=== PATIENT | female | born 1960 | race Caucasian/White ===

== ENCOUNTER → 2016-12-05 | Outpatient (CLI) | payer BC ==
[~2016-12-05] MED LIST: ATIVAN 0.50.5 MG/TAB PO; BUSPAR10 MG PO; DESYREL DIVIDO150 M1 PO; FERROUS SULFATE27 MG PO; HYZAAR 12.5 MG-1 TAB PO; MULTIVITAMIN FO1 CAP PO; NORCO 325 MG-51 TAB PO; PREMPHASE1 TAB PO; SYNTHROID 0.10.15 MG PO; VALTREX1 GM PO; VITAMIN B 12 PO; VITAMIN D 3 PO; ZOLOFT 100MG100 MG PO
== END ==
LOC: BHSO 08:11
DX: F10.20 Alcohol dependence, uncomplicated (principal)

== ENCOUNTER → 2016-12-30 | Outpatient (CLI) | payer BC | LOC: BHSO 08:04 | DX: F33.42 Major depressive disorder, recurrent, in full remission (principal) ==

== ENCOUNTER → 2017-02-28 | Outpatient (CLI) | payer BC | LOC: BHSO 08:04 | DX: F33.42 Major depressive disorder, recurrent, in full remission (principal) ==

== ENCOUNTER → 2017-05-31 | Outpatient (CLI) | payer BC | LOC: BHSO 09:09 | DX: F33.42 Major depressive disorder, recurrent, in full remission (principal) ==

== ENCOUNTER → 2018-02-19 | Outpatient (CLI) | payer BC | LOC: MC.RAD 07:20 | DX: Z12.31 Encounter for screening mammogram for malignant neoplasm of breast (principal) ==

== ENCOUNTER → 2018-02-23 | Outpatient (CLI) | payer BC | LOC: BHSO 08:49 | DX: F33.41 Major depressive disorder, recurrent, in partial remission (principal) | CPT/HCPCS: G0463 ==

== ENCOUNTER 2018-05-17 16:05 | Emergency (ER) | payer BC ==
[2018-05-17 16:40] VITALS: TEMP 98.6
[2018-05-17] MEDS ORDERED: EFFEXOR XR75 MG/CAP (16:45)
[2018-05-17 17:02] LABS: COLLECTION METHOD CLEAN CATCH
[2018-05-17 17:04] LABS: BASO % 0.1 % (0.0-2.0); GRAN # 6.5 (1.4-6.5); HEMATOCRIT 34.4 % (37.0-47.0); HEMOGLOBIN 11.4 g/dl (12.5-16.0); LYMPH # 0.4 (1.2-3.4); LYMPH % 4.8 % (20.0-51.0); MEAN CELL VOLUME 85 fl (80.0-100.0); MEAN CORPUSCULAR HEMOGLOBIN 28 pg (27.0-31.0); MEAN CORPUSCULAR HGB CONC 33 g/dl (33.0-37.0); MONO # 0.4 (0.1-0.6); MONO % 5.8 % (1.7-9.3); PLATELET COUNT 185 K/mm3 (130-400); RED BLOOD COUNT 4.07 M/mm3 (4.10-5.30); REDCELL DISTRIBUTION WIDTH-CV 15.7 % (11.5-14.5)
[2018-05-17 17:10] LABS: ALANINE AMINOTRANSFERASE 38 U/L (9-52); ALBUMIN 3.9 gm/dL (3.5-5.0); ALKALINE PHOSPHATASE 81 U/L (50-136); ANION GAP 14 mmol/L (7-16); AST,SGOT 47 U/L (15-37); BILIRUBIN,TOTAL 1.2 mg/dL (0.0-1.0); BLOOD UREA NITROGEN 10 mg/dL (7-17); CALCIUM 8.2 mg/dL (8.4-10.2); CARBON DIOXIDE 23 mmol/L (22-30); CREATININE, serum 0.61 mg/dL (0.52-1.25); GLUCOSE 221 mg/dL (74-106); LIPASE 95 U/L (23-300); MAGNESIUM 1.3 mg/dL (1.6-2.3); POTASSIUM 4.6 mmol/L (3.4-5.0); SODIUM 124 mmol/L (137-145); TOTAL PROTEIN 7.6 gm/dL (6.4-8.2)
[2018-05-17 17:13] LABS: MUCOUS Present /lpf; PH 5 (5-8); URINE APPEARANCE Hazy; URINE BACTERIA Rare /hpf; URINE BILIRUBIN Negative (NEGATIVE); URINE BLOOD Negative (NEGATIVE); URINE COLOR Yellow; URINE GLUCOSE 3+ (NEGATIVE); URINE KETONE 2+ (NEGATIVE); URINE LEUKOCYTE ESTERASE Negative (NEGATIVE); URINE NITRATE Negative (NEGATIVE); URINE PROTEIN(semi-quant) Negative (NEGATIVE); URINE RBC 0-2 /hpf; URINE UROBILINOGEN Negative (NEGATIVE)
[2018-05-17 17:15] LABS: ALCOHOL(ethanol),MEDICAL < 10 mg/dL
[2018-05-17 17:16] LABS: CHLORIDE 87 mmol/L (98-107)
[2018-05-17] MEDS ORDERED: VALIUM 5MG T5 MG/TAB PO (18:09)
[2018-05-17] MEDS ORDERED: ZOFRAN 4MG T4 MG/TAB PO (18:09)
[2018-05-17 19:50] VITALS: BP 143/79; PULSE 80
== END 2018-05-17 20:01 | disposition home or self-care (01) ==
LOC: COL.ER 16:05
PROVIDERS: Emergency Medicine
DX: F10.239 Alcohol dependence with withdrawal, unspecified (principal); R11.10 Vomiting, unspecified; E87.1 Hypo-osmolality and hyponatremia; E83.42 Hypomagnesemia
CPT/HCPCS: J0780; J2060; J2405; J3411; J3475; J7030

== ENCOUNTER → 2018-05-25 | Outpatient (CLI) | payer BC ==
[~2018-05-25] MED LIST changes: +EFFEXOR XR75 MG/CAP; +VALIUM 5MG T5 MG/TAB PO; +ZOFRAN 4MG T4 MG/TAB PO
== END ==
LOC: BHSO 08:06
DX: F33.42 Major depressive disorder, recurrent, in full remission (principal)
CPT/HCPCS: G0463

== ENCOUNTER 2018-07-28 12:43 | Emergency (ER) | payer BC ==
[2018-07-28 12:46] VITALS: TEMP 98.4
[2018-07-28 13:15] LABS: BASO # 0.1 (0.0-0.2); BASO % 0.9 % (0.0-2.0); EOS # 0.2 (0.0-0.7); EOS % 3.3 % (0-4.0); GRAN # 2.8 (1.4-6.5); GRAN % 48.2 % (42.2-75.2); HEMOGLOBIN 11.9 g/dl (12.5-16.0); LYMPH # 2.3 (1.2-3.4); LYMPH % 40.5 % (20.0-51.0); MEAN CELL VOLUME 85 fl (80.0-100.0); MEAN CORPUSCULAR HEMOGLOBIN 28 pg (27.0-31.0); MEAN CORPUSCULAR HGB CONC 33 g/dl (33.0-37.0); MEAN PLATELET VOLUME 8.9 fl (7.4-10.4); MONO # 0.4 (0.1-0.6); MONO % 6.4 % (1.7-9.3); PLATELET COUNT 295 K/mm3 (130-400); RED BLOOD COUNT 4.25 M/mm3 (4.10-5.30); REDCELL DISTRIBUTION WIDTH-CV 15.9 % (11.5-14.5)
[2018-07-28 13:16] LABS: HEMATOCRIT 36.2 % (37.0-47.0)
[2018-07-28] MEDS ORDERED: CAMPRAL333 M1 PO (13:19)
[2018-07-28 13:20] LABS: ALANINE AMINOTRANSFERASE 18 U/L (9-52); ALBUMIN 3.9 gm/dL (3.5-5.0); ALKALINE PHOSPHATASE 86 U/L (50-136); ANION GAP 15 mmol/L (7-16); AST,SGOT 34 U/L (15-37); BILIRUBIN,TOTAL 0.2 mg/dL (0.0-1.0); BLOOD UREA NITROGEN 10 mg/dL (7-17); CALCIUM 8.1 mg/dL (8.4-10.2); CARBON DIOXIDE 25 mmol/L (22-30); CHLORIDE 103 mmol/L (98-107); CREATININE, serum 0.62 mg/dL (0.52-1.25); GLUCOSE 97 mg/dL (74-106); MAGNESIUM 1.9 mg/dL (1.6-2.3); POTASSIUM 4.3 mmol/L (3.4-5.0); SODIUM 143 mmol/L (137-145); TOTAL PROTEIN 7.2 gm/dL (6.4-8.2)
[2018-07-28 13:27] LABS: ACETAMINOPHEN < 10 ug/mL (10-30); SALICYLATE < 1.0 mg/dL
[2018-07-28 13:28] LABS: ALCOHOL(ethanol),MEDICAL 400 mg/dL
[2018-07-28 13:30] LABS: COLLECTION METHOD CLEAN CATCH
[2018-07-28 13:41] LABS: MUCOUS Present /lpf; PH 5 (5-8); SQUAMOUS EPITHELIAL 0-2 /hpf; URINE APPEARANCE Clear; URINE BACTERIA Rare /hpf; URINE BILIRUBIN Negative (NEGATIVE); URINE BLOOD Negative (NEGATIVE); URINE COLOR Straw; URINE GLUCOSE Negative (NEGATIVE); URINE KETONE Negative (NEGATIVE); URINE LEUKOCYTE ESTERASE Negative (NEGATIVE); URINE NITRATE Negative (NEGATIVE); URINE PROTEIN(semi-quant) Negative (NEGATIVE); URINE RBC 0-2 /hpf; URINE UROBILINOGEN Negative (NEGATIVE)
[2018-07-28 13:50] LABS: TRICYCLIC ANTIDEPRESS URINE NEGATIVE
[2018-07-28 21:34] VITALS: BP 136/87
[2018-07-29 05:39] VITALS: PULSE 97
== END 2018-07-29 05:40 | disposition home or self-care (01) ==
LOC: COL.ER 12:43
PROVIDERS: Emergency Medicine
DX: R45.851 Suicidal ideations (principal); F10.129 Alcohol abuse with intoxication, unspecified; F32.9 Major depressive disorder, single episode, unspecified; Y90.8 Blood alcohol level of 240 mg/100 ml or more

== ENCOUNTER → 2018-08-02 | Outpatient (CLI) | payer BC ==
[~2018-08-02] MED LIST changes: +CAMPRAL333 M1 PO
== END ==
LOC: BHSO 14:26
DX: F10.20 Alcohol dependence, uncomplicated (principal)
CPT/HCPCS: G0463

== ENCOUNTER → 2018-09-20 | Outpatient (CLI) | payer BC | LOC: BHSO 08:21 | DX: F10.20 Alcohol dependence, uncomplicated (principal) | CPT/HCPCS: G0463 ==

== ENCOUNTER → 2018-12-19 | Outpatient (CLI) | payer BC | LOC: BHSO 08:16 | DX: F33.42 Major depressive disorder, recurrent, in full remission (principal) | CPT/HCPCS: G0463 ==

== ENCOUNTER 2019-06-08 19:30 | Emergency (ER) | payer BC ==
[~2019-06-08] VITALS: Ht 165.1 cm; Wt 47.7 kg
[2019-06-08 19:32] VITALS: TEMP 99.5
[2019-06-08 19:58] VITALS: BP 114/73
[2019-06-08 21:57] VITALS: PULSE 92
== END 2019-06-08 21:57 | disposition home or self-care (01) ==
LOC: COL.ER 19:30
DX: S01.81XA Laceration without foreign body of other part of head, initial encounter (principal); F10.10 Alcohol abuse, uncomplicated; W19.XXXA Unspecified fall, initial encounter; W22.8XXA Striking against or struck by other objects, initial encounter

== ENCOUNTER 2021-08-04 08:31 | Inpatient (IN) | payer BC ==
[2021-08-04] VITALS (358 sets, daily range): BP systolic 93–119; BP diastolic 58–91; PULSE 118–132; TEMP 98–98.3; O2SAT 88–100
[~2021-08-04] VITALS: Ht 165.1 cm; Wt 75.0 kg
[2021-08-04 09:11] LABS: ALANINE AMINOTRANSFERASE 283 U/L (4-34); ALBUMIN 4.4 gm/dL (3.5-5.0); ALKALINE PHOSPHATASE 84 U/L (50-136); ANION GAP 15 mmol/L (7-16); BILIRUBIN,TOTAL 3.3 mg/dL (0.0-1.0); BLOOD UREA NITROGEN 29 mg/dL (7-17); C-REACTIVE PROTEIN 4.1 mg/dL (0.0-0.9); CALCIUM 9.1 mg/dL (8.4-10.2); CARBON DIOXIDE 35 mmol/L (22-30); CREATININE, serum 1.11 (0.52-1.25); GLUCOSE 119 mg/dL (74-106); LIPASE 160 U/L (23-300); SODIUM 120 mmol/L (137-145); TOTAL PROTEIN 7.6 gm/dL (6.4-8.2)
[2021-08-04 09:26] LABS: ALCOHOL(ethanol),MEDICAL < 10 mg/dL
[2021-08-04 09:28] LABS: POTASSIUM 2.3 mmol/L (3.4-5.0)
[2021-08-04 09:29] LABS: AST,SGOT 1026 U/L (15-37); CHLORIDE 71 mmol/L (98-107)
[2021-08-04 09:44] LABS: MUCOUS Present /lpf; PH 5 (5-8); SQUAMOUS EPITHELIAL 0-2 /hpf; URINE APPEARANCE Hazy; URINE BACTERIA None Seen /hpf; URINE BILIRUBIN Negative (NEGATIVE); URINE BLOOD 3+ (NEGATIVE); URINE COLOR Amber; URINE GLUCOSE Negative (NEGATIVE); URINE KETONE Trace (NEGATIVE); URINE LEUKOCYTE ESTERASE Negative (NEGATIVE); URINE NITRATE Negative (NEGATIVE); URINE PROTEIN(semi-quant) 2+ (NEGATIVE); URINE RBC 0-2 /hpf
[2021-08-04 09:47] LABS: COLLECTION METHOD CATHETER
[2021-08-04 09:52] LABS: HEMATOCRIT 42.4 % (37.0-47.0); HEMOGLOBIN 15.3 g/dl (12.5-16.0); MEAN CELL VOLUME 84 fl (80.0-100.0); MEAN CORPUSCULAR HEMOGLOBIN 30 pg (27.0-31.0); MEAN CORPUSCULAR HGB CONC 36 g/dl (33.0-37.0); MEAN PLATELET VOLUME 10.7 fl (7.4-10.4); PLATELET COUNT 268 K/mm3 (130-400); RED BLOOD COUNT 5.05 M/mm3 (4.10-5.30); REDCELL DISTRIBUTION WIDTH-CV 13.3 % (11.5-14.5)
[2021-08-04 10:22] LABS: BAND 7 % (0-10); LYMPHOCYTE 4 % (20.0-51.0); NEUTROPHILS 80 % (42.0-75.2); PLATELET ESTIMATE NORMAL (NORMAL)
[2021-08-04 10:24] LABS: CREATINE KINASE 34209 U/L (30-135)
--- NOTE | 2021-08-04 11:45 | NUR ---
PT ADMITTED FROM ER WITH FALL AND WEAKNESS. PT IS LETHARGIC BUT ORIENTED. PT HAS SCATTERED BRUISING ALL OVER FROM FALL. PT IS ST ON MONITOR. PT'S BP IS SOFT IN THE 90'S. PT HAS NS RUNNING AT 75ML/HR. PTS HOME MEDS SENT DOWN TO PHARMACY. PT HAS A NECKLACE, WATCH, PHONE, AND CLOTHES IN ROOM. DANIEL IS HER PRIMARY CONTACT. ON THE UNIT AND NOTIFIED OF ARRIVAL. LAB CALLED FOR LACTIC AND BMP ORDERED. WILL CONITNUE TO MONITOR.
[2021-08-04] MEDS ORDERED: BRINTELLIX10 (12:05)
[2021-08-04] MEDS ORDERED: ABILIFY5 MG PO (12:06)
[2021-08-04] MEDS ORDERED: HCTZ 25MG TAB25 MG PO (12:07)
[2021-08-04] MEDS ORDERED: ATARAX50 MG PO (12:08)
[2021-08-04] MEDS ORDERED: NORCO 325 MG-7.1 TAB PO (12:10)
[2021-08-04 13:11] LABS: CALCIUM 8.2 mg/dL (8.4-10.2); CREATININE, serum 0.86 (0.52-1.25)
[2021-08-04 13:23] LABS: POTASSIUM 2.6 mmol/L (3.4-5.0)
--- NOTE | 2021-08-04 16:00 | NUR ---
Pt has not been able to void. Pt bladder scanned with a result of 288. Will continue to montior.
[2021-08-04 18:32] LABS: CALCIUM 7.9 mg/dL (8.4-10.2); CREATININE, serum 0.86 (0.52-1.25); POTASSIUM 3.1 mmol/L (3.4-5.0)
[2021-08-05] VITALS (600 sets, daily range): BP systolic 92–114; BP diastolic 62–78; PULSE 91–108; TEMP 97.9–98.5; O2SAT 76–100
[2021-08-05 05:15] LABS: BASO % 0.3 % (0.0-2.0); EOS # 0.1 (0.0-0.7); EOS % 0.5 % (0-4.0); GRAN # 12.5 (1.4-6.5); GRAN % 79.3 % (42.2-75.2); LYMPH # 1.5 (1.2-3.4); LYMPH % 9.8 % (20.0-51.0); MEAN CELL VOLUME 87 fl (80.0-100.0); MEAN CORPUSCULAR HGB CONC 35 g/dl (33.0-37.0); MONO # 1.4 (0.1-0.6); MONO % 9.1 % (1.7-9.3); PLATELET COUNT 189 K/mm3 (130-400)
[2021-08-05 05:17] LABS: HEMATOCRIT 31.4 % (37.0-47.0); MEAN CORPUSCULAR HEMOGLOBIN 31 pg (27.0-31.0)
[2021-08-05 06:07] LABS: CALCIUM 7.6 mg/dL (8.4-10.2); CREATININE, serum 0.61 (0.52-1.25); POTASSIUM 3.4 mmol/L (3.4-5.0)
[2021-08-05 12:03] LABS: CALCIUM 7.8 mg/dL (8.4-10.2); CREATININE, serum 0.59 (0.52-1.25); MAGNESIUM 1.9 mg/dL (1.6-2.3); POTASSIUM 3.6 mmol/L (3.4-5.0)
--- NOTE | 2021-08-05 16:22 | NUR ---
refuge worker met with patient to discuss discharge planning. Patient states she resides with her spouse and plans to return there upon discharge. Patient's primary care provider is Dr Rosario. Patient states she is concerned about her weakness and possibility of needing durable medical equipment in the home. Worker stated that physical therapy will help guide us on what might be needed and we will help patient secure the item. Worker provided information on advance directives and will follow up with patient tomorrow as she is interested in making these documents. Patient states she does not have problems obtaining her prescriptions.
[2021-08-05 18:01] LABS: CALCIUM 7.7 mg/dL (8.4-10.2); CREATININE, serum 0.53 (0.52-1.25); POTASSIUM 3.6 mmol/L (3.4-5.0)
--- NOTE | 2021-08-05 19:29 | NUR ---
Report given to JUAN Patiño.
--- NOTE | 2021-08-05 23:25 | NUR ---
RECEIVED REPORT FROM SCALLOP DREDGERTARA. AWAITING PATIENT TRANSFER FROM ICU TO ROOM 325.
--- NOTE | 2021-08-05 23:45 | NUR ---
PT TRANSFERRED TO SURGICAL 325. REPORT GIVEN TO ARIN MARTINEZ PER PHONE, RN AT BEDSIDE ON ARRIVAL. BELONGINGS INCLUDING CLOTHES, WATCH, LAPTOP/STONE RUBBER, AND PHONE WITH PT.
[2021-08-05 23:49] LABS: CALCIUM 7.9 mg/dL (8.4-10.2); CREATININE, serum 0.64 (0.52-1.25); POTASSIUM 3.8 mmol/L (3.4-5.0)
--- NOTE | 2021-08-05 23:53 | NUR ---
PATIENT TRANSFERED VIA WHEELCHAIR FROM ICU ACCOMPANIED BY ICU [id number]. TELE IN PLACE.
--- NOTE | 2021-08-06 00:35 | NUR ---
OBSERVED GAIT STIFF LEGGED/AWKWARD WITH AMBULATION TO BATHROOM.
[2021-08-06 01:59] VITALS: BP 105/64; PULSE 96; TEMP 98.1
[2021-08-06 04:42] VITALS: BP 87/57; PULSE 86; TEMP 97.7
[2021-08-06 06:26] VITALS: BP 104/63; PULSE 96; TEMP 98.7
--- NOTE | 2021-08-06 07:35 | NUR ---
CHANGE OF SHIFT REPORT GIVEN TO DAY SHIFT NURSE, RUPA MARTINEZ.
[2021-08-06 07:55] LABS: ALBUMIN 2.7 gm/dL (3.5-5.0); BILIRUBIN,TOTAL 0.6 mg/dL (0.0-1.0); CALCIUM 7.5 mg/dL (8.4-10.2); CREATININE, serum 0.5 (0.52-1.25); MEAN CELL VOLUME 89 fl (80.0-100.0); MEAN CORPUSCULAR HGB CONC 33 g/dl (33.0-37.0); MEAN PLATELET VOLUME 9.9 fl (7.4-10.4); PLATELET COUNT 206 K/mm3 (130-400); POTASSIUM 3.3 mmol/L (3.4-5.0); RED BLOOD COUNT 3.27 M/mm3 (4.10-5.30); REDCELL DISTRIBUTION WIDTH-CV 14.7 % (11.5-14.5); TOTAL PROTEIN 5.1 gm/dL (6.4-8.2)
[2021-08-06 07:56] LABS: HEMATOCRIT 29.2 % (37.0-47.0); HEMOGLOBIN 9.7 g/dl (12.5-16.0); MEAN CORPUSCULAR HEMOGLOBIN 30 pg (27.0-31.0)
--- NOTE | 2021-08-06 08:30 | NUR ---
PATIENT HELPED TO CHAIR. WEAK GAIT. GAIT BELT UTILIZED. PATIENT IS ALERT AND ORIENTED X4 BUT IS DROWSY AND STILL HAS SLIGHT TREMORS. PATIENT HAS IV TO LEFT FOREARM AND LEFT AC WITH FLUIDS RUNNING AT 125ML/HR. PATIENT HAS LIMITED MOVEMENT OF RIGHT ARM. PATIENT ON ROOM AIR. PATIENT DENIES PAIN OR FURTHER NEEDS AT THIS TIME. CALL LIGHT WITHIN REACH. HEAD TO TOE ASSESSMENT COMPLETE.
[2021-08-06 08:35] LABS: BAND 9 % (0-10); EOSINOPHIL 3 % (0-4); LYMPHOCYTE 13 % (20.0-51.0); METAMYELOCYTE 2 % (0-0); NEUTROPHILS 65 % (42.0-75.2); PLATELET ESTIMATE NORMAL (NORMAL)
--- NOTE | 2021-08-06 10:00 | NUR ---
DR. YU IN WITH PATIENT SAID TO CAP FLUIDS. PATIENT GIVEN POTASSIUM REPLACEMENT PER ORDERS. POTASSIUM OF 3.3
[2021-08-06 11:27] VITALS: BP 116/67; PULSE 97; TEMP 97.7
--- NOTE | 2021-08-06 12:09 | NUR ---
upkeep worker met with patient to follow up on DPOA-HC paperwork and to discuss the need for HH. Patient agrees to HH and does not have a preference on agency. This mental health social worker and community relations representative witness the patient sign DPOA-HC form. Copy placed in chart and original given back to the patient. HH referrals sent to [facility] and [facility]. Waiting for response. *Discharge plan: Home with spouse/ HH*
[2021-08-06 13:54] LABS: CALCIUM 8.1 mg/dL (8.4-10.2); CREATININE, serum 0.57 (0.52-1.25); MAGNESIUM 1.8 mg/dL (1.6-2.3); POTASSIUM 4.2 mmol/L (3.4-5.0)
--- NOTE | 2021-08-06 14:37 | NUR ---
First visit from the sports writer. prayed with patient. No other needs right now.
[2021-08-06 16:00] VITALS: BP 111/70; PULSE 107; TEMP 98.9
--- NOTE | 2021-08-06 18:02 | NUR ---
PATIENT DID WELL THROUGHOUT DAY. HELPED WITH SHOWER AND COMBED HAIR AND CHANGED LINENS. SOCIAL WORK SAID THAT [facility] ACCEPTED FOR PT ONLY. WILL TALK WITH HER MORE TOMORROW. POTENTIAL DISCHARGE TOMORROW. NO FURTHER NEEDS AT THIS TIME. WILL REPORT TO DAYSHIFT.
[2021-08-06 19:51] VITALS: BP 112/65; PULSE 103; TEMP 98
--- NOTE | 2021-08-06 23:00 | NUR ---
Patient assessed around 2129. Complained of pain to BLE, and given PRN Roxicodone as requested for pain. Not scoring high enough on alcohol detox protocol to receive PRN Ativan. Voices no questions, needs, or concerns at this time. Resting in bed with call light within reach.
[2021-08-07 00:11] VITALS: BP 107/66; PULSE 87; TEMP 98.7
--- NOTE | 2021-08-07 01:20 | NUR ---
Patient given PRN Roxicodone for pain as requested at this time.
[2021-08-07 04:14] VITALS: BP 120/70; PULSE 88; TEMP 98.4
--- NOTE | 2021-08-07 06:07 | NUR ---
Patient has not scored high enough this shift to receive PRN Ativan for alcohol detox. Patient has received PRN Roxicodone as requested for pain. Voices no questions, needs, or concerns at this time. Resting in bed with call light within reach.
--- NOTE | 2021-08-07 07:00 | NUR ---
Report received from JUAN Oliva. PT in bed resting, wants to get up for breakfast to chair, and wants PRn pain pill when available.
[2021-08-07 07:35] LABS: CALCIUM 8.3 mg/dL (8.4-10.2); CREATININE, serum 0.76 (0.52-1.25); MAGNESIUM 1.9 mg/dL (1.6-2.3)
[2021-08-07 08:06] LABS: MEAN CELL VOLUME 93 fl (80.0-100.0); MEAN CORPUSCULAR HEMOGLOBIN 30 pg (27.0-31.0); MEAN CORPUSCULAR HGB CONC 33 g/dl (33.0-37.0); MEAN PLATELET VOLUME 9.7 fl (7.4-10.4); PLATELET COUNT 257 K/mm3 (130-400); RED BLOOD COUNT 3.31 M/mm3 (4.10-5.30); REDCELL DISTRIBUTION WIDTH-CV 15.4 % (11.5-14.5)
[2021-08-07 08:14] LABS: HEMATOCRIT 30.8 % (37.0-47.0)
[2021-08-07 08:19] VITALS: BP 114/62; PULSE 116; TEMP 98.1
--- NOTE | 2021-08-07 08:22 | NUR ---
Assessment charted. Pt in chair, able to get up with some assistance and feels that she is not sure she is safe for home, wants to talk to social media job titles and hospitalist regarding plan. Reviewedl ab results with pt and encouraged her to keep drinking fluids. Pt reports generalized achiness at 6/10, pain meds given. pt moves well once up but feels she is "puffy all over" today and sore and weak. INT to LFA. Chair alarm on, will contineu to monitor.
[2021-08-07 10:00] VITALS: BP 104/68; PULSE 83; TEMP 98.2
[2021-08-07] MEDS ORDERED: MAG-OX 400400 MG/TAB PO (10:49)
[2021-08-07] MEDS ORDERED: DUO-KAPS1 CAP PO (10:49)
[2021-08-07] MEDS ORDERED: THIAMINE 1100 MG/TAB PO (10:49)
[2021-08-07] MEDS ORDERED: FOLIC ACID 11 MG/TA1 PO (10:49)
--- NOTE | 2021-08-07 13:09 | NUR ---
Discharge teaching completed at this time. INT dc'd, tip intact. Pt received dieshcarge packet, knows to make F/U appointments and lab draw. here to picker operator patient at this. Pt left via [facility] belongings, escorted out by surgical staff, pharmacy returned all home meds. to drive home, criteria met.
--- NOTE | 2021-08-07 13:48 | NUR ---
Patient wanted to know more about care supports and [facility]. Educated patient on services. Patient reports that she does not think that she will need the home health but Lucio will still follow up with client on Monday for supports. Nothing follows.
--- NOTE | 2021-08-10 14:04 | NUR ---
Zulema with [facility] stated that patient declined their services.
== END 2021-08-07 13:09 | disposition home or self-care (01) | DRG 558 ==
LOC: COL.ER 08:31 → ICU 09:47 → SURG 08-06 00:10
PROVIDERS: Family Medicine; Physician Assistant; ADMIT Internal Medicine
DX: M62.82 Rhabdomyolysis (principal); F10.239 Alcohol dependence with withdrawal, unspecified; E87.1 Hypo-osmolality and hyponatremia; E87.2 Acidosis; E87.6 Hypokalemia; E87.8 Other disorders of electrolyte and fluid balance, not elsewhere classified; D72.829 Elevated white blood cell count, unspecified; F41.9 Anxiety disorder, unspecified; F32.9 Major depressive disorder, single episode, unspecified; I10 Essential (primary) hypertension; E03.9 Hypothyroidism, unspecified; G47.00 Insomnia, unspecified; E86.0 Dehydration; M48.56XS Collapsed vertebra, not elsewhere classified, lumbar region, sequela of fracture; E83.42 Hypomagnesemia
CPT/HCPCS: 99223-AI; 99232-AI; 99233-AI; J1650; J2060; J2405; J3411; J3475; J3480; J7030; J7120

== ENCOUNTER → 2021-11-23 | Outpatient (CLI) | payer BC ==
[~2021-11-23] MED LIST changes: +ABILIFY5 MG PO; +ATARAX50 MG PO; +BRINTELLIX10; +DUO-KAPS1 CAP PO; +FOLIC ACID 11 MG/TA1 PO; +HCTZ 25MG TAB25 MG PO; +MAG-OX 400400 MG/TAB PO; +NORCO 325 MG-7.1 TAB PO; +THIAMINE 1100 MG/TAB PO
== END ==
LOC: MC.RAD 07:45
DX: Z12.31 Encounter for screening mammogram for malignant neoplasm of breast (principal)

== ENCOUNTER → 2023-03-03 | Outpatient (CLI) | payer BC | LOC: MC.RAD 08:37 | DX: Z12.31 Encounter for screening mammogram for malignant neoplasm of breast (principal) ==

== ENCOUNTER → 2023-03-15 | Outpatient (CLI) | payer BC | LOC: COL.RAD 13:34 | DX: M47.817 Spondylosis without myelopathy or radiculopathy, lumbosacral region (principal); M48.061 Spinal stenosis, lumbar region without neurogenic claudication; M48.56XA Collapsed vertebra, not elsewhere classified, lumbar region, initial encounter for fracture ==

== ENCOUNTER → 2023-08-10 | Outpatient (CLI) | payer BC | LOC: MHCPAIN 08:12 | DX: M47.817 Spondylosis without myelopathy or radiculopathy, lumbosacral region (principal); M54.50 Low back pain, unspecified | CPT/HCPCS: J0665 ==

== ENCOUNTER → 2023-08-31 | Outpatient (CLI) | payer BC | LOC: MHCPAIN 13:00 | DX: M47.817 Spondylosis without myelopathy or radiculopathy, lumbosacral region (principal); M54.50 Low back pain, unspecified | CPT/HCPCS: J0665 ==

== ENCOUNTER → 2023-09-04 | Outpatient (CLI) | payer BC | LOC: MHCPAIN 08:23 | DX: M47.816 Spondylosis without myelopathy or radiculopathy, lumbar region (principal); G89.29 Other chronic pain | CPT/HCPCS: G0463 ==

== ENCOUNTER → 2024-03-27 | Outpatient (CLI) | payer BC | LOC: MC.RAD 11:10 | DX: Z12.31 Encounter for screening mammogram for malignant neoplasm of breast (principal) ==